=== PATIENT | male | born 1945 | race Caucasian/White ===

== ENCOUNTER → 2016-04-22 | Outpatient (CLI) | payer MEDICARE ==
[~2016-04-22] MED LIST: HIGH BP PO; HIGH CHOLESTEROL PO; LEVO.05 PO
--- NOTE | 2016-04-23 09:49 | RSPPFT ---
DATE OF PROCEDURE: 04/22/16 COMMENTS: Spirometry shows FVC of 3.8 at 88% of predicted, FEV1 of at 3.2 at 109%, FEV1/FVC ratio is normal. Flow is normal at FEF 25, FEF 50, FEF 75 and FEF 25-75. There is no response after bronchodilator treatment. Lung volumes show residual volume is normal. TLC is normal. Diffusion capacity is normal. Flow volume loop indicates a normal pattern. IMPRESSION: 1. Normal spirometry. 2. No response after bronchodilator treatment. 3. Normal lung volumes. 4. Diffusion capacity is normal.
== END ==
LOC: HRSP 12:27
PROVIDERS: ATTEND Family Medicine
DX: R05 Cough (principal)
CPT/HCPCS: 94060; 94726; 94729